=== PATIENT | male | born 1980 | race American Indian/Alaskan Native ===

== ENCOUNTER 2017-02-15 13:58 | Emergency (ER) | payer OTHER ==
[2017-02-15 14:30] VITALS: O2SAT 98
--- NOTE | 2017-02-15 14:34 | C.PDOC ---
History Of Present Illness 36 y/o male c/o right third finger pain x 1 day, started after he tripped and landed on hand and jammed finger. pt c/o difficulty bending finger. +swelling and tenderness. no numbness or tingling. denies any other injuries. Time Seen by Provider: 02/15/17 14:26 Chief Complaint (Nursing): Upper Extremity Problem/Injury History Per: Patient History/Exam Limitations: no limitations Onset/Duration Of Symptoms: Days (1) Current Symptoms Are (Timing): Still Present Quality: Tightness Severity: Moderate Exacerbating Factor(s): Movement Past Medical History Reviewed: Historical Data, Nursing Documentation, Vital Signs Vital Signs: Last Vital Signs Temp 98.4 F 02/15/17 14:22 Pulse 54 L 02/15/17 14:22 Resp 18 02/15/17 14:22 BP 138/86 02/15/17 14:22 Pulse Ox 98 02/15/17 15:19 - Medical History PMH: No Chronic Diseases Surgical History: No Surg Hx Family History: States: Unknown Family Hx - Social History Hx Alcohol Use: No Hx Substance Use: No Review Of Systems Musculoskeletal: Positive for: Hand Pain (right 3rd finger). Negative for: Neck Pain Skin: Negative for: Rash Neurological: Negative for: Weakness, Numbness Physical Exam - Physical Exam Appears: Non-toxic, No Acute Distress Skin: Warm, Dry Head: Atraumatic, Normacephalic Neck: Normal ROM Extremity: Capillary Refill (normal), Other (from at [place] wrist, other fingers non tender, not swollen) Extremity: Left: Atraumatic, Right: Bony Point Tenderness (third finger phalanges), Limited ROM To Joint (3rd finger), Bilateral: Normal Color And Temperature Pulses: Right Radial: Normal Neurological/Psych: Oriented x3, Normal Speech, Normal Cognition ED Course And Treatment O2 Sat by Pulse Oximetry: 98 Orthopedic Time Performed: 15:11 Time Out: Side verified Procedure: Splint Other:: finger right third Location: Right Consent obtained: Verbal Performed by: Mid-level Provider Diagnosis: Sprain Location: Right, Middle Bone: 3rd Capillary refill: Normal Distal Sensation: Normal Distal Motor Function: Normal Capillary Refill: Normal Compartment: Normal Distal Sensation: Normal Distal Motor Function: Normal Patient tolerated procedure: Well Medical Decision Making Medical Decision Making: pt with swollen and tender right third finger after jamming it from a fall; cold compress, nsaid, xray 310 pm no fx noted on xray. will d/c with finger splint, f/u hand Disposition Counseled Patient/Family Regarding: Studies Performed, Diagnosis, Need For Followup, Rx Given - Disposition Referrals: Koko Mckeon MD [Staff Provider] - Disposition: HOME/ ROUTINE Disposition Time: 15:13 Condition: STABLE Additional Instructions: Wear splint for comfort. Apply cold compresses to finger several times a day. Ibuprofen for pain. If pain and swelling persist after a few days, follow up with Dr Mckeon, hand specialist. Prescriptions: Ibuprofen [Motrin] 600 mg PO TID #30 tab Instructions: Finger Sprain (ED) Forms: General Discharge Instructions - Clinical Impression Clinical Impression: Sprain of right middle finger
[2017-02-15 15:28] VITALS: BP 140/85; PULSE 48; RESP 20; TEMP 98.1
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
== END 2017-02-15 15:26 | disposition home or self-care (01) ==
LOC: C.ER 13:58
DX: S63.612A Unspecified sprain of right middle finger, initial encounter (principal); W01.0XXA Fall on same level from slipping, tripping and stumbling without subsequent striking against object, initial encounter

== ENCOUNTER 2019-01-13 14:04 | Emergency (ER) | payer OTHER ==
[2019-01-13 14:08] VITALS: BMI 32.5
[2019-01-13 14:12] VITALS: BP 139/91; PULSE 61; RESP 18; TEMP 98.4; O2SAT 97
[2019-01-13] MEDS ORDERED: Tdap Vaccine 0.5 ml Vial (10-64 yrs) IM ONE ×2 (14:25→14:39)
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
== END 2019-01-13 16:01 | disposition home or self-care (01) ==
LOC: C.ER 14:04
DX: S33.5XXA Sprain of ligaments of lumbar spine, initial encounter (principal); V49.9XXA Car occupant (driver) (passenger) injured in unspecified traffic accident, initial encounter; Z23 Encounter for immunization